=== PATIENT | female | born 1990 | race African-American/Black ===

== ENCOUNTER 2019-02-11 04:02 | Emergency (ER) | payer MEDICAID ==
[~2019-02-11] VITALS: Ht 167.6 cm; Wt 69.0 kg
[2019-02-11 07:05] VITALS: BP 105/66
== END 2019-02-11 07:20 | disposition home or self-care (01) ==
LOC: ER 04:43
DX: T51.0X1A Toxic effect of ethanol, accidental (unintentional), initial encounter (principal); Y92.89 Other specified places as the place of occurrence of the external cause; Y90.8 Blood alcohol level of 240 mg/100 ml or more
CPT/HCPCS: 36415; 80320; 99283; Z7610; G0480